=== PATIENT | male | born 1985 | race Caucasian/White ===

== ENCOUNTER 2016-07-12 21:20 | Emergency (ER) | payer SELFPAY ==
[2016-07-12 21:32] VITALS: BP 128/84; PULSE 82; RESP 18; TEMP 98.7; O2SAT 98
[2016-07-12 22:31] LABS: URINE BILIRUBIN NEGATIVE (NEGATIVE); URINE BLOOD NEGATIVE (NEGATIVE); URINE COLOR Colorless (YELLOW); URINE GLUCOSE (UA) NORMAL (Normal); URINE KETONE NEGATIVE (NEGATIVE); URINE LEUKOCYTE ESTERASE NEG Leu/uL (Negative); URINE PROTEIN NEGATIVE (NEGATIVE); URINE UROBILINOGEN NORMAL mg/dL (0.2-1.0)
--- NOTE | 2016-07-12 22:44 | C.PDOC ---
History Of Present Illness Patient is a 30 y/o that presents to the ED for evaluation of lower back pain that started this morning. Patient states pain has been getting progressively worse as he went throughout his day. Patient reports having similar symptoms 2 years ago, and states he "tore a muscle". Denies taking any pain meds at home. Otherwise, denies any trauma, extremity weakness/ numbness, incontinence, fever , or any other associated symptoms at this time. Time Seen by Provider: 07/12/16 21:49 Chief Complaint (Nursing): Back Pain History Per: Patient History/Exam Limitations: no limitations Onset/Duration Of Symptoms: Hrs Current Symptoms Are (Timing): Still Present Quality Of Discomfort: Sharp Associated Symptoms: denies: Incontinence, New Weakness, New Numbness Past Medical History Vital Signs: Last Vital Signs Temp 98.7 F 07/12/16 21:28 Pulse 82 07/12/16 21:28 Resp 18 07/12/16 21:28 BP 128/84 07/12/16 21:28 Pulse Ox 98 07/12/16 22:44 - Medical History PMH: Anxiety Denies: Diabetes, Hepatitis, HIV, HTN, Seizures, Sexually Transmitted Disease - [facility] Procedures INDIVID PSYCHOTHERAP NEC (04/11/13) Family History: States: No Known Family Hx - Social History Hx Alcohol Use: Yes Hx Substance Use: No Review Of Systems Except As Marked, All Systems Reviewed And Found Negative. Musculoskeletal: Positive for: Back Pain Physical Exam - Physical Exam Appears: Well, Non-toxic, No Acute Distress (PT sitting in chair, laughing with friend , in no obvious distress) Skin: Normal Color, Warm, Dry Head: Atraumatic, Normacephalic Eye(s): bilateral: Normal Inspection, EOMI Nose: Normal Oral Mucosa: Moist Neck: Normal, Normal ROM, No Paracervical Tenderness, Supple Chest: Symmetrical Cardiovascular: Rhythm Regular Respiratory: Normal Breath Sounds Gastrointestinal/Abdominal: Normal Exam, Soft, No Tenderness Back: Normal Inspection, No CVA Tenderness, No Vertebral Tenderness, Paraspinal Tenderness (left lower paralumbar tenderness) Extremity: Normal ROM, No Tenderness Neurological/Psych: Oriented x3, Normal Speech, Normal Motor, Normal Sensation ED Course And Treatment O2 Sat by Pulse Oximetry: 98 - Other Rad LS XR X-Ray: Interpreted by Me, Viewed By Me Interpretation: NAD Progress Note: Toradol and Flexeril ordered. On reassessment, patient is resting comfortably, with improvement of back pain. Patient remains afebrile, with no bony tenderness, extremity numbness or weakness, or abdominal pain. Patient is ambulatory in the emergency department with no signs of discomfort. Patient was advised to follow up with physician/clinic in 1-2 days. Disposition - Disposition Referrals: [facility] at [facility] [Outside] Disposition: HOME/ ROUTINE Disposition Time: 22:42 Condition: STABLE Additional Instructions: Follow up with your primary medical doctor or clinic in 2-5 days for further evaluation. Take medications as prescribed. Return to the emergency department at any time if symptoms persist or worsen. Prescriptions: Cyclobenzaprine [Cyclobenzaprine HCl] 10 mg PO TID #20 tab Naproxen [Naprosyn] 1 tab PO BID PRN #20 tab PRN Reason: Pain Instructions: Acute Low Back Pain (ED) - Clinical Impression Clinical Impression: Low back pain
--- NOTE | 2016-07-13 07:56 | RAD ---
PROCEDURE: Radiographs of the Lumbar Spine. HISTORY: PAIN COMPARISON: No prior. FINDINGS: BONES: Normal alignment. No listhesis. No fracture. DISC SPACES: Unremarkable. OTHER FINDINGS: None. IMPRESSION: Unremarkable radiographs of the lumbar spine.
== END 2016-07-12 22:54 | disposition home or self-care (01) ==
LOC: C.ER 21:20 → MERGE 21:20 → C.ER 22:54
DX: M54.5 Low back pain (principal)
CPT/HCPCS: 72100; 81001; 96372; 99284; J1885

== ENCOUNTER 2017-01-15 20:08 | Emergency (ER) | payer SELFPAY ==
[2017-01-15 20:29] VITALS: BP 133/80; PULSE 109; RESP 20; TEMP 98.2; O2SAT 98
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
== END 2017-01-15 23:00 | disposition left against medical advice (07) ==
LOC: C.ER 20:08
DX: S09.92XA Unspecified injury of nose, initial encounter (principal); Y04.0XXA Assault by unarmed brawl or fight, initial encounter

== ENCOUNTER → 2017-05-18 | Emergency (ER) | payer SELFPAY ==
[2017-05-18 19:10] VITALS: BP 141/88; PULSE 79; RESP 18; TEMP 98; O2SAT 97
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
== END | disposition left against medical advice (07) ==
LOC: C.ER 18:34
DX: F41.9 Anxiety disorder, unspecified (principal); Z72.0 Tobacco use

== ENCOUNTER 2017-08-21 16:40 | Emergency (ER) | payer OTHER ==
[2017-08-21 17:18] VITALS: BMI 23.7
[2017-08-21] MEDS ORDERED: Lactated Ringer's 1,000 ML IVB STA (17:59)
[2017-08-21] MEDS ORDERED: Lactated Ringer's 1,000 ML ONE (18:08)
[2017-08-21 18:24] LABS: URINE BILIRUBIN NEGATIVE (NEGATIVE); URINE BLOOD NEGATIVE (NEGATIVE); URINE CLARITY Hazy (Clear); URINE COLOR Yellow (YELLOW); URINE GLUCOSE (UA) NORMAL (Normal); URINE LEUKOCYTE ESTERASE 3+ Leu/uL (Negative); URINE PROTEIN NEGATIVE (NEGATIVE); URINE UROBILINOGEN NORMAL mg/dL (0.2-1.0)
[2017-08-21 18:26] LABS: BASO % 0.3 % (0.0-2.0); EOS # 0.1 K/uL (0.0-0.7); EOS % 1.2 % (0.0-4.0); HEMOGLOBIN 15.3 g/dL (12.0-18.0); LYMPH # 0.9 K/uL (1.0-4.3); LYMPH % 8.7 % (20.0-40.0); MEAN CELL VOLUME 92.2 fL (80.0-94.0); MEAN CORPUSCULAR HEMOGLOBIN 31.9 pg (27.0-31.0); MEAN CORPUSCULAR HGB CONC 34.6 g/dL (33.0-37.0); MEAN PLATELET VOLUME 7.4 fL (7.2-11.7); MONO # 0.7 K/uL (0.0-0.8); MONO % 7.1 % (0.0-10.0); NEUT # 8.7 K/uL (1.8-7.0); NEUT % 82.7 % (50.0-75.0); PLATELET COUNT 186 K/uL (130-400); RBC 4.79 Mil/uL (4.40-5.90); RED CELL DISTRIBUTION WIDTH 12.9 % (11.5-14.5); WHITE BLOOD COUNT 10.5 K/uL (4.8-10.8)
[2017-08-21 18:31] LABS: ALB/GLOB RATIO 1.4 (1.0-2.1); ALBUMIN 4.3 g/dL (3.5-5.0); ALT/SGPT 55 U/L (21-72); AST/SGOT 51 U/L (17-59); BLOOD UREA NITROGEN 15 mg/dL (9-20); CALCIUM 9.4 mg/dl (8.6-10.4); GFR AFRICAN-AMERICAN > 60; GFR NON-AFRICAN AMERICAN > 60
[2017-08-21] MEDS ORDERED: Magnesium Sulfate 1 gm in D5W 1 GM/100 ML BAG IVPB STA (18:32)
[2017-08-21 18:35] LABS: BARBITURATES, UR NEGATIVE (NEGATIVE); BENZODIAZEPINES, UR NEGATIVE (NEGATIVE); OPIATES, UR NEGATIVE (NEGATIVE); PHENCYCLIDINE, UR NEGATIVE (NEGATIVE)
[2017-08-21] MEDS ORDERED: Magnesium Sulfate 1 gm in D5W 1 GM/100 ML BAG IVPB ONE (18:55)
[2017-08-21 18:56] LABS: EOSINOPHIL 2 % (0-4); LYMPHOCYTE 10 % (20-40); MONOCYTE 5 % (0-10); NEUTROPHIL 83 % (50-75); PLATELET ESTIMATE NORMAL (NORMAL); TOTAL CELLS COUNTED 100
[2017-08-21 19:33] VITALS: RESP 20
[2017-08-21] MEDS ORDERED: cefTRIAXone (Rocephin) 250 mg Inj IM STA (19:52)
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
[2017-08-21 20:51] VITALS: BP 145/71; PULSE 77; TEMP 98.4; O2SAT 99
== END 2017-08-21 20:51 | disposition home or self-care (01) ==
LOC: C.ER 16:40
DX: F10.10 Alcohol abuse, uncomplicated (principal); N34.2 Other urethritis; Z72.0 Tobacco use
CPT/HCPCS: 80053; 80320; 80324; 80345; 80346; 80349; 80353; 80358; 80361; 81001; 83735; 83992; 85025; 87086; 87491; 87591; 96365; 96372; 99285; J0696; J3475; J7120

== ENCOUNTER 2017-09-09 10:13 | Emergency (ER) | payer OTHER ==
[2017-09-09 10:13] VITALS: BMI 23.7
[2017-09-09] MEDS ORDERED: Sodium Chloride 0.9% 500 ML IV ONE (10:47)
[2017-09-09] MEDS ORDERED: Sodium Chloride 0.9% 1,000 ML ONE (11:00)
[2017-09-09 11:43] LABS: BASO # 0.1 K/uL (0.0-0.2); BASO % 1.4 % (0.0-2.0); EOS # 0.3 K/uL (0.0-0.7); EOS % 5.3 % (0.0-4.0); HEMOGLOBIN 15.6 g/dL (12.0-18.0); LYMPH # 1.9 K/uL (1.0-4.3); MEAN CORPUSCULAR HEMOGLOBIN 32.3 pg (27.0-31.0); MEAN CORPUSCULAR HGB CONC 34.8 g/dL (33.0-37.0); MEAN PLATELET VOLUME 7.6 fL (7.2-11.7); MONO # 0.4 K/uL (0.0-0.8); MONO % 8.1 % (0.0-10.0); NEUT # 2.9 K/uL (1.8-7.0); NEUT % 51.2 % (50.0-75.0); RBC 4.84 Mil/uL (4.40-5.90); RED CELL DISTRIBUTION WIDTH 12.7 % (11.5-14.5); WHITE BLOOD COUNT 5.6 K/uL (4.8-10.8)
[2017-09-09 12:02] LABS: ALB/GLOB RATIO 1.5 (1.0-2.1); ALBUMIN 4.3 g/dL (3.5-5.0); ALT/SGPT 65 U/L (21-72); AST/SGOT 102 U/L (17-59); BLOOD UREA NITROGEN 15 mg/dL (9-20); CALCIUM 9.2 mg/dl (8.6-10.4); GFR AFRICAN-AMERICAN > 60; GFR NON-AFRICAN AMERICAN > 60; LIPASE 200 U/L (23-300)
[2017-09-09 12:09] LABS: BARBITURATES, UR NEGATIVE (NEGATIVE); BENZODIAZEPINES, UR NEGATIVE (NEGATIVE); OPIATES, UR NEGATIVE (NEGATIVE); PHENCYCLIDINE, UR NEGATIVE (NEGATIVE)
[2017-09-09 12:33] VITALS: BP 131/81; PULSE 87; RESP 16; TEMP 98.2; O2SAT 98
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
== END 2017-09-09 12:32 | disposition home or self-care (01) ==
LOC: C.ER 10:13
DX: F10.10 Alcohol abuse, uncomplicated (principal); Z72.0 Tobacco use
CPT/HCPCS: 80053; 80320; 80324; 80345; 80346; 80349; 80353; 80358; 80361; 83690; 83992; 85025; 96361; 96374; 96375; 99285; J2405; J7040

== ENCOUNTER 2018-07-04 14:49 | Emergency (ER) | payer OTHER ==
[2018-07-04 14:49] VITALS: BMI 23.7
[2018-07-04 14:57] VITALS: BP 132/82; PULSE 102; RESP 18; TEMP 97.8; O2SAT 98
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
[2018-07-04] MEDS ORDERED: Lidocaine 5% Patch TD STA (15:41)
[2018-07-04] MEDS ORDERED: Naproxen 550 mg Tab PO STA (15:42)
[2018-07-04] MEDS ORDERED: Naproxen 550 mg Tab PO ONE (15:56)
[2018-07-04] MEDS ORDERED: Lidocaine 5% Patch TD ONE (15:57)
== END 2018-07-04 16:29 | disposition home or self-care (01) ==
LOC: C.ER 14:49
DX: M54.5 Low back pain (principal); Z72.0 Tobacco use